=== PATIENT | female | born 1940 | race Caucasian/White ===

== ENCOUNTER 2019-11-05 16:12 | Emergency (ER) | payer MEDICARE ==
[~2019-11-05] VITALS: Ht 162.6 cm; Wt 55.0 kg
[2019-11-05 17:33] VITALS: BP 99/55
== END 2019-11-05 17:36 | disposition home or self-care (01) ==
LOC: ER 16:12
DX: S46.212A Strain of muscle, fascia and tendon of other parts of biceps, left arm, initial encounter (principal); S16.1XXA Strain of muscle, fascia and tendon at neck level, initial encounter; E78.00 Pure hypercholesterolemia, unspecified; I10 Essential (primary) hypertension; M41.9 Scoliosis, unspecified; X50.1XXA Overexertion from prolonged static or awkward postures, initial encounter; Y93.89 Activity, other specified; Y92.89 Other specified places as the place of occurrence of the external cause; Y99.9 Unspecified external cause status
CPT/HCPCS: 93005; 99284

== ENCOUNTER 2020-01-17 07:44 | Day surgery (SDC) | payer MEDICARE ==
[~2020-01-17] VITALS: Ht 162.6 cm; Wt 54.3 kg
[2020-01-17 08:05] VITALS: BP 155/78
[2020-01-17] MEDS ORDERED: normal saline 1000ml 1,000 ML IV PRN (08:10)
[2020-01-17] MEDS ORDERED: CHOL200077 PO (08:15)
[2020-01-17] MEDS ORDERED: FURO-150 PO (08:15)
[2020-01-17] MEDS ORDERED: LOSA100T57 PO (08:15)
[2020-01-17] MEDS ORDERED: METO50TA17 PO (08:15)
[2020-01-17] MEDS ORDERED: CYAN250010 PO (08:22)
[2020-01-17] MEDS ORDERED: OMEP-50 PO (08:22)
[2020-01-17] MEDS ORDERED: METF-951 PO (08:22)
[2020-01-17] MEDS ORDERED: SIMV-45 PO (08:22)
[2020-01-17] MEDS ORDERED: ASPI-1265 PO (08:22)
[2020-01-17] MEDS ORDERED: OXYB5TAB16 PO (08:22)
[2020-01-17] MEDS ORDERED: VITA400C67 PO (08:22)
[2020-01-17] MEDS ORDERED: CALC-854 PO (08:22)
[2020-01-17 09:06] LABS: BASOPHILS # (AUTO) 0.1 X10'3 (0-0.2); BASOPHILS % (AUTO) 1.4 % (0-1); EOSINOPHILS # (AUTO) 0.3 X10'3 (0-0.9); EOSINOPHILS % (AUTO) 2.8 % (0-6); HEMATOCRIT 32.3 % (35.0-45.0); LYMPHOCYTES # (AUTO) 2.3 X10'3 (1.1-4.8); LYMPHOCYTES % (AUTO) 22.9 % (21-51); MEAN CORPUSCULAR HEMOGLOBIN 30.1 PG (27.0-31.0); MEAN CORPUSCULAR HGB CONC 34.1 g/dL (33.0-36.5); MEAN CORPUSCULAR VOLUME 88.3 FL (78-98); MEAN PLATELET VOLUME 7.6 FL (7.4-10.4); MONOCYTES # (AUTO) 0.8 X10'3 (0-0.9); MONOCYTES % (AUTO) 8.4 % (2-12); NEUTROPHILS # (AUTO) 6.4 X10'3 (1.8-7.7); NEUTROPHILS % (AUTO) 64.5 % (42-75); PLATELET COUNT 340 X10'3 (140-440); RED BLOOD COUNT 3.65 X10'6 (4.20-5.60); RED CELL DISTRIBUTION WIDTH 13.3 % (11.5-14.5); WHITE BLOOD COUNT 9.9 X10'3 (4.5-11.0)
[2020-01-17] MEDS ORDERED: fentaNYL/PF 50MCG/1 ML 2ML syringe ONE (10:26)
[2020-01-17] MEDS ORDERED: midazolam 2 mg/2 ml injection ONE (10:26)
[2020-01-17] MEDS ORDERED: gelatin sponge, absorbable (Gelfoam 12-7MM) sponge TP ONE (10:35)
[2020-01-17 11:03] VITALS: BP 155/71
[2020-01-17 11:15] VITALS: BP 156/69
[2020-01-17 11:30] VITALS: BP 155/72
[2020-01-17 11:45] VITALS: BP 154/70
== END 2020-01-17 12:10 | disposition home or self-care (01) ==
LOC: MED 3N 07:44 → SSTAY O 07:44
PROVIDERS: ATTEND Radiology Vascular & Interventional Radiology
DX: C50.212 Malignant neoplasm of upper-inner quadrant of left female breast (principal); C79.51 Secondary malignant neoplasm of bone; Z79.01 Long term (current) use of anticoagulants; I10 Essential (primary) hypertension; E11.9 Type 2 diabetes mellitus without complications; Z79.82 Long term (current) use of aspirin; Z79.899 Other long term (current) drug therapy
CPT/HCPCS: 20220; 36415; 76942; 77002; 85025; 85610; 99152; 99153; J2250; J3010

== ENCOUNTER 2021-03-02 12:04 | Inpatient (IN) | payer MEDICARE ==
[~2021-03-02] VITALS: Ht 162.6 cm; Wt 54.0 kg
[~2021-03-02 12:04] MED LIST: ASPI-1265 PO; CALC-854 PO; CHOL200077 PO; CYAN250010 PO; FURO-150 PO; LOSA100T57 PO; METF-951 PO; METO50TA17 PO; OMEP-50 PO; OXYB5TAB16 PO; SIMV-45 PO; VITA400C67 PO
[2021-03-02 12:46] LABS: HEMOGLOBIN 7.9 g/dl (12.0-16.0); RED BLOOD COUNT 2.04 X10'6 (4.20-5.60); RED CELL DISTRIBUTION WIDTH 19.8 % (11.5-14.5); WHITE BLOOD COUNT 3.9 X10'3 (4.5-11.0)
[2021-03-02 12:47] LABS: BASOPHILS # (AUTO) 0.1 X10'3 (0-0.2); BASOPHILS % (AUTO) 1.4 % (0-1); EOSINOPHILS # (AUTO) 0.1 X10'3 (0-0.9); HEMATOCRIT 22.3 % (35.0-45.0); LYMPHOCYTES # (AUTO) 0.4 X10'3 (1.1-4.8); LYMPHOCYTES % (AUTO) 10.7 % (21-51); MEAN CORPUSCULAR HEMOGLOBIN 38.6 PG (27.0-31.0); MEAN CORPUSCULAR HGB CONC 35.4 g/dL (33.0-36.5); MEAN CORPUSCULAR VOLUME 109.3 FL (78-98); MEAN PLATELET VOLUME 6.4 FL (7.4-10.4); MONOCYTES # (AUTO) 0.5 X10'3 (0-0.9); NEUTROPHILS # (AUTO) 2.8 X10'3 (1.8-7.7); NEUTROPHILS % (AUTO) 71.9 % (42-75); PLATELET COUNT 180 X10'3 (140-440)
[2021-03-02 13:03] LABS: ALANINE AMINOTRANSFERASE 24 U/L (12-78); ALBUMIN 3.2 G/DL (3.4-5.0); ALBUMIN/GLOBULIN RATIO 0.9 (1.1-1.5); ALKALINE PHOSPHATASE 87 IU/L (46-116); ANION GAP 13 (8-16); ASPARTATE AMINO TRANSFERASE 26 U/L (10-37); BILIRUBIN,TOTAL 0.8 MG/DL (0.1-1.0); BLOOD UREA NITROGEN 27 MG/DL (7-18); BUN/CREATININE RATIO 17.9 (6.6-38.0); CALCIUM 7.9 MG/DL (8.5-10.1); CHLORIDE 101 MMOL/L (99-107); CREATININE 1.51 MG/DL (0.40-0.90); GLUCOSE 214 MG/DL (70-104); POTASSIUM 3.9 MMOL/L (3.5-5.1); SODIUM 138 MMOL/L (135-145); TOTAL CARBON DIOXIDE 24.4 MMOL/L (24-32); TOTAL PROTEIN 6.9 G/DL (6.4-8.2); eGFR 33 ML/MIN
[2021-03-02 13:24] LABS: ANISOCYTOSIS 2+; PLATELET ESTIMATE NORMAL; POLYCHROMASIA 1+
[2021-03-02] MEDS ORDERED: acetaminophen 325mg tablet PO PRN (17:20)
[2021-03-02] MEDS ORDERED: mag hydrox/Alum hydrox/simeth 30ml oral suspension PO PRN (17:20)
[2021-03-02] MEDS ORDERED: ondansetron/PF 4mg/2ml inj IV PRN (17:20)
[2021-03-02] MEDS ORDERED: magnesium hydroxide 30ml (MOM) UD suspension PO PRN (17:20)
[2021-03-02] MEDS ORDERED: ROSU20TA31 PO (17:29)
[2021-03-02] MEDS ORDERED: METF-900 PO (17:29)
[2021-03-02] MEDS ORDERED: APIX2.5T PO (17:29)
[2021-03-02] MEDS ORDERED: LAN0.125T PO (17:29)
[2021-03-02] MEDS ORDERED: OMEP40CA13 PO (17:29)
[2021-03-02] MEDS ORDERED: ROPI1TAB6 PO (17:29)
[2021-03-02] MEDS ORDERED: FERR324T PO (17:29)
[2021-03-02] MEDS ORDERED: LEVO75TA7 PO (17:30)
--- NOTE | 2021-03-02 19:15 | NUR ---
I have received report from Angela WANG from ER , and had the opportunity to ask questions and assume patient care.
--- NOTE | 2021-03-02 19:20 | NUR ---
Patient arrived to the floor via gurney accompanied by Yuli WANG in stable condition. Two bags of patient belongings were put in patients specific closet, cell phone is on bed side table with patient and jewelry is on patient(rings, watch and bracelets). Will cont. to monitor per hospital policy.
[2021-03-02 19:30] VITALS: BP 147/91
[2021-03-02] MEDS: furosemide 10 MG/1 ML 10ml inj IV SCH (21:52)
[2021-03-03 01:00] LABS: ANION GAP 11 (8-16); BLOOD UREA NITROGEN 27 MG/DL (7-18); BUN/CREATININE RATIO 17.8 (6.6-38.0); CALCIUM 7.5 MG/DL (8.5-10.1); CHLORIDE 102 MMOL/L (99-107); CREATININE 1.52 MG/DL (0.40-0.90); GLUCOSE 144 MG/DL (70-104); POTASSIUM 3.6 MMOL/L (3.5-5.1); SODIUM 140 MMOL/L (135-145); TOTAL CARBON DIOXIDE 27.3 MMOL/L (24-32); eGFR 33 ML/MIN
[2021-03-03 01:18] LABS: BASOPHILS # (AUTO) 0.1 X10'3 (0-0.2); BASOPHILS % (AUTO) 1.5 % (0-1); EOSINOPHILS # (AUTO) 0.3 X10'3 (0-0.9); EOSINOPHILS % (AUTO) 6.3 % (0-6); HEMOGLOBIN 7.7 g/dl (12.0-16.0); LYMPHOCYTES # (AUTO) 0.6 X10'3 (1.1-4.8); LYMPHOCYTES % (AUTO) 13.6 % (21-51); MEAN CORPUSCULAR HEMOGLOBIN 38.7 PG (27.0-31.0); MEAN CORPUSCULAR HGB CONC 35.5 g/dL (33.0-36.5); MEAN CORPUSCULAR VOLUME 108.8 FL (78-98); MEAN PLATELET VOLUME 6.5 FL (7.4-10.4); MONOCYTES # (AUTO) 0.6 X10'3 (0-0.9); MONOCYTES % (AUTO) 14.3 % (2-12); NEUTROPHILS # (AUTO) 2.8 X10'3 (1.8-7.7); NEUTROPHILS % (AUTO) 64.3 % (42-75); PLATELET COUNT 193 X10'3 (140-440); RED BLOOD COUNT 1.99 X10'6 (4.20-5.60); WHITE BLOOD COUNT 4.3 X10'3 (4.5-11.0)
[2021-03-03 01:22] LABS: HEMATOCRIT 21.6 % (35.0-45.0)
--- NOTE | 2021-03-03 01:28 | NUR ---
(Dr. Schaeffer) notified regarding critical HCT of 21.6, no orders were given. Will cont. to monitor per hospital policy.
[2021-03-03 02:00] VITALS: BP 122/61
[2021-03-03 06:00] VITALS: BP 154/76
--- NOTE | 2021-03-03 06:30 | NUR ---
Patient in room PCU 3014. I have received report from Beverly WANG and had the opportunity to ask questions and assume patient care.
--- NOTE | 2021-03-03 06:49 | NUR ---
Problems reprioritized. Patient report given, questions answered & plan of care reviewed with Kaylin WANG.
[2021-03-03] MEDS: metoprolol tartrate 50mg tablet PO SCH ×2 (08:00→21:03)
[2021-03-03] MEDS: oxybutynin 5mg tablet PO SCH (08:00)
[2021-03-03] MEDS ORDERED: levoTHYROXINE 75mcg tablet PO SCH (08:00)
[2021-03-03] MEDS: furosemide 10 MG/1 ML 10ml inj IV SCH ×2 (08:25→21:04)
[2021-03-03] MEDS: cyanocobalamin 500mcg tablet PO SCH (08:26)
[2021-03-03] MEDS: aspirin 81mg tab.chew PO SCH (08:26)
[2021-03-03] MEDS: digoxin 125mcg (0.125mg) tablet PO SCH (08:27)
[2021-03-03] MEDS: cholecalciferol (vitamin D3) 1,000 unit (25mcg) tablet PO SCH (08:27)
[2021-03-03] MEDS: ROPINIRole 1mg tablet PO SCH ×2 (08:28→21:01)
[2021-03-03] MEDS: apixaban 2.5mg tablet PO SCH ×2 (08:31→21:01)
[2021-03-03] MEDS: losartan 50mg tablet PO SCH (08:31)
[2021-03-03] MEDS: pantoprazole 40mg Tablet.DR PO SCH (08:31)
[2021-03-03] MEDS: levoTHYROXINE 75mcg tablet PO SCH (08:41)
[2021-03-03] MEDS: ferrous gluconate 324mg tablet PO SCH (09:34)
[2021-03-03] MEDS: vitamin E 400 unit capsule PO SCH (09:34)
[2021-03-03 11:00] VITALS: BP 125/77
[2021-03-03] MEDS ORDERED: PALB100T PO (13:00)
--- NOTE | 2021-03-03 13:05 | NUR ---
Paged Dr. Ramírez regarding cancer med PAGER ID: [phone] MESSAGE: [id number] Liz Levine. I have her cancer medication here Ibrance(palbociclib). It is not in med rec. I need it added so I can give to pharmKenn Ewing
[2021-03-03 15:00] VITALS: BP 110/59
[2021-03-03 18:00] VITALS: BP 128/75
--- NOTE | 2021-03-03 18:15 | NUR ---
Patient in room PCU 3014. I have received report from FELIPE HAYS and had the opportunity to ask questions and assume patient care.
--- NOTE | 2021-03-03 18:29 | NUR ---
Problems reprioritized. Patient report given, questions answered & plan of care reviewed with Phi RN. Patient stable at transfer of care.
[2021-03-03] MEDS ORDERED: atorvastatin 20mg tablet PO SCH (21:00)
[2021-03-03 22:00] VITALS: BP_SYST 100; BP_SYST 107; BP_DIAS 58; BP_DIAS 73
[2021-03-04 02:00] VITALS: BP 111/66
[2021-03-04 06:00] VITALS: BP 112/75
--- NOTE | 2021-03-04 06:11 | NUR ---
Problems reprioritized. Patient report given, questions answered & plan of care reviewed with FELIPE HAYS.
--- NOTE | 2021-03-04 06:41 | NUR ---
Patient in room PCU 3014. I have received report from Phi WANG and had the opportunity to ask questions and assume patient care.
[2021-03-04 07:08] LABS: BASOPHILS # (AUTO) 0.1 X10'3 (0-0.2); BASOPHILS % (AUTO) 2.7 % (0-1); EOSINOPHILS # (AUTO) 0.4 X10'3 (0-0.9); EOSINOPHILS % (AUTO) 8.5 % (0-6); HEMATOCRIT 25.4 % (35.0-45.0); HEMOGLOBIN 9.2 g/dl (12.0-16.0); LYMPHOCYTES # (AUTO) 1.1 X10'3 (1.1-4.8); LYMPHOCYTES % (AUTO) 24.3 % (21-51); MEAN CORPUSCULAR HEMOGLOBIN 38.9 PG (27.0-31.0); MEAN CORPUSCULAR VOLUME 108.2 FL (78-98); MEAN PLATELET VOLUME 6.7 FL (7.4-10.4); MONOCYTES # (AUTO) 0.7 X10'3 (0-0.9); MONOCYTES % (AUTO) 16.6 % (2-12); NEUTROPHILS # (AUTO) 2.1 X10'3 (1.8-7.7); NEUTROPHILS % (AUTO) 47.9 % (42-75); PLATELET COUNT 233 X10'3 (140-440); RED BLOOD COUNT 2.35 X10'6 (4.20-5.60); RED CELL DISTRIBUTION WIDTH 18.9 % (11.5-14.5); WHITE BLOOD COUNT 4.5 X10'3 (4.5-11.0)
[2021-03-04] MEDS: ROPINIRole 1mg tablet PO SCH (07:45)
[2021-03-04] MEDS: levoTHYROXINE 75mcg tablet PO SCH (07:45)
[2021-03-04] MEDS: pantoprazole 40mg Tablet.DR PO SCH (07:45)
[2021-03-04] MEDS: vitamin E 400 unit capsule PO SCH (07:45)
[2021-03-04] MEDS: aspirin 81mg tab.chew PO SCH (07:45)
[2021-03-04] MEDS: ferrous gluconate 324mg tablet PO SCH (07:46)
[2021-03-04] MEDS: losartan 50mg tablet PO SCH (07:46)
[2021-03-04] MEDS: digoxin 125mcg (0.125mg) tablet PO SCH (07:46)
[2021-03-04] MEDS: cholecalciferol (vitamin D3) 1,000 unit (25mcg) tablet PO SCH (07:47)
[2021-03-04] MEDS: cyanocobalamin 500mcg tablet PO SCH (07:47)
[2021-03-04] MEDS: apixaban 2.5mg tablet PO SCH (07:47)
[2021-03-04] MEDS: furosemide 10 MG/1 ML 10ml inj IV SCH (07:51)
[2021-03-04] MEDS: oxybutynin 5mg tablet PO SCH (08:00)
[2021-03-04] MEDS: metoprolol tartrate 50mg tablet PO SCH ×2 (08:00→10:11)
[2021-03-04 08:02] LABS: ALBUMIN 3.2 G/DL (3.4-5.0); ANION GAP 14 (8-16); BLOOD UREA NITROGEN 25 MG/DL (7-18); BUN/CREATININE RATIO 16.2 (6.6-38.0); CHLORIDE 99 MMOL/L (99-107); CREATININE 1.54 MG/DL (0.40-0.90); GLUCOSE 126 MG/DL (70-104); POTASSIUM 3.7 MMOL/L (3.5-5.1); SODIUM 138 MMOL/L (135-145); TOTAL CARBON DIOXIDE 25.4 MMOL/L (24-32); eGFR 32 ML/MIN
[2021-03-04 08:37] LABS: ANISOCYTOSIS 2+; PLATELET ESTIMATE NORMAL; TOTAL CELLS COUNTED 100
[2021-03-04 08:44] LABS: ELLIPTOCYTES FEW; POLYCHROMASIA FEW; SCHISTOCYTES FEW
[2021-03-04 10:11] VITALS: BP_SYST 112
[2021-03-04] MEDS ORDERED: FURO-150 PO (10:28)
[2021-03-04] MEDS ORDERED: POTA10TA36 PO (10:28)
--- NOTE | 2021-03-04 11:16 | NUR ---
Patient safe for discharge per doctors orders. Medications and discharge instructions discussed. Medication retrieved from pharmacy and sent home with patient. PIV discontinued cannula intact. Telemetry discontinued. Patient wheeled to lobby via nursing staff. Went home in private vehicle with spouse.
--- NOTE | 2021-03-05 15:15 | NUR ---
CASE MANAGEMENT DISCHARGE FOLLOW UP: Spoke with pt via telephone. Reports that she is "doing," and that she "expected to be jumping up and down", c/o weakness/low energy, states still SOB but much better than prior to admission; denies CP. Pt states that she has been finding it hard to retain new information/concentrate and has been easily irritated/frustrated with self today. She denies headache, changes to vision, changes to speech, one-sided weakness/facial droop. Advised pt to notify PMD of symptoms, especially if they worsen/do not improve. Pt thinks likely result of feeling fatigued. Verbalizes understanding of s/sx requiring further evaluation/emergent assistance. Verbalizes understanding of new and current medications, states has not heard from pharmacist about new meds, will f/u. Verbalizes compliance with MD discharge instructions. Verbalizes understanding of the importance in making/keeping follow-up appointments, states will call PMD for f/u. States no further questions/concerns at this time. 1524 T/c to pharmacy regarding medications, clarified orders, will be filled and they will notify pt when medications are ready to be picked up.
== END 2021-03-04 11:16 | disposition home or self-care (01) | DRG 292 ==
LOC: ER 12:05 → ED HOLD 17:19 → PCU 3S 19:20
PROVIDERS: ADMIT Family Medicine; ATTEND Family Medicine
DX: I11.0 Hypertensive heart disease with heart failure (principal); N17.9 Acute kidney failure, unspecified; I50.33 Acute on chronic diastolic (congestive) heart failure; D64.9 Anemia, unspecified; E11.22 Type 2 diabetes mellitus with diabetic chronic kidney disease; E78.5 Hyperlipidemia, unspecified; I48.91 Unspecified atrial fibrillation; K21.9 Gastro-esophageal reflux disease without esophagitis; Z85.3 Personal history of malignant neoplasm of breast; Z90.49 Acquired absence of other specified parts of digestive tract
CPT/HCPCS: 36415; 71045; 80048; 80053; 80162; 83880; 84484; 85007; 85008; 85025; 87081; 93005; 93306; 97116; 97161; 97530; 99285; G0378; J1940